=== PATIENT | female | born 1945 | race Caucasian/White ===

== ENCOUNTER 2017-05-24 00:32 | Emergency (ER) | payer MEDICARE, BC ==
[~2017-05-24] VITALS: Ht 160 cm; Wt 63.5 kg
[~2017-05-24 00:32] MED LIST: AMLO5TAB2 PO
--- NOTE | 2017-05-24 01:08 | NUR ---
Patient discharged to home in stable conditon. Written and verbal after care instructions given. Patient verbalizes understanding of instructions. Ambulated from ER with stable gait. All belongings with patient. Patient will be driven home by in private vehicle. Patient educated not to drive or operate heavy machinery due to recent opiate intake.
[2017-05-24 01:10] VITALS: BP 144/79
[2017-05-24] MEDS ORDERED: HYDROCODONE/APAP 10-325 MG TABLET PO ONE (01:15)
[2017-05-24] MEDS ORDERED: HYDROCODONE/APAP 10-325 MG TABLET ONE (01:16)
== END 2017-05-24 01:18 | disposition home or self-care (01) ==
LOC: ER 00:32
DX: M79.622 Pain in left upper arm (principal); I10 Essential (primary) hypertension
CPT/HCPCS: 71010; 93005; A4663

== ENCOUNTER 2017-11-10 21:54 | Inpatient (IN) | payer MEDICARE, BC ==
[~2017-11-10] VITALS: Ht 160 cm; Wt 65.8 kg
[2017-11-10] MEDS ORDERED: ASPIRIN 325 MG TABLET ONE (22:42)
[2017-11-10] MEDS ORDERED: NITROGLYCERIN OINT 1 GM PACKET TP ONE ×3 (22:43→22:45)
[2017-11-10] MEDS ORDERED: ASPIRIN 325 MG TABLET PO ONE (22:45)
[2017-11-10 23:29] LABS: BASOPHILS # (AUTO) 0.1 K/uL (0.0-8.0); BASOPHILS % (AUTO) 0.8 % (0.0-2.0); EOSINOPHILS # (AUTO) 0.3 K/uL (0.0-0.7); EOSINOPHILS % (AUTO) 4.2 % (0.0-7.0); HEMATOCRIT 42.5 % (31.2-41.9); HEMOGLOBIN 14.3 g/dL (10.9-14.3); LYMPHOCYTES # (AUTO) 3.9 K/uL (20.0-40.0); LYMPHOCYTES % (AUTO) 47.7 % (20.5-51.5); MEAN CORPUSCULAR HEMOGLOBIN 31.4 uug (24.7-32.8); MEAN CORPUSCULAR HGB CONC 34 g/dL (32.3-35.6); MEAN CORPUSCULAR VOLUME 93.6 fL (75.5-95.3); MONOCYTES # (AUTO) 0.7 K/uL (2.0-10.0); MONOCYTES % (AUTO) 8.5 % (0.0-11.0); NEUTROPHILS # (AUTO) 3.2 K/uL (1.8-8.9); NEUTROPHILS % (AUTO) 38.8 % (38.5-71.5); PLATELET COUNT (AUTO) 355 K/uL (179-408); RED BLOOD CELL COUNT(AUTO) 4.54 MIL/uL (3.63-4.92); WHITE BLOOD COUNT (AUTO) 8.2 K/uL (3.8-11.8)
[2017-11-10 23:37] LABS: CARBON DIOXIDE 27 mmol/L (21-32); CHLORIDE 105 mmol/L (98-107); CREATININE 0.9 mg/dL (0.6-1.3); GLUCOSE 90 mg/dL (74-106); POTASSIUM 4.1 mmol/L (3.5-5.1); UREA NITROGEN, BLOOD 25 mg/dL (7-18)
--- NOTE | 2017-11-10 23:45 | NUR ---
Patient wished to depart AMA, and patient discussing their options.
--- NOTE | 2017-11-11 00:16 | NUR ---
Call placed to [facility], Dr. Tejada will be paged.
[2017-11-11] MEDS ORDERED: MAGNESIUM HYDROXIDE 30 ML LIQUID UDC PO PRN (00:30)
[2017-11-11] MEDS ORDERED: NITROGLYCERIN 0.4 MG/TAB BOTTLE SL PRN (00:30)
[2017-11-11] MEDS ORDERED: Z GUARD REMEDY PASTE 57 GM TUBE TOP PRN (00:30)
[2017-11-11] MEDS ORDERED: ONDANSETRON 4 MG/2 ML VIAL IV PRN (00:30)
[2017-11-11] MEDS ORDERED: MORPHINE SULFATE 4 MG/1 ML DISP.SYRIN IV PRN (00:30)
[2017-11-11] MEDS ORDERED: ACETAMINOPHEN 325 MG TABLET PO PRN (00:30)
[2017-11-11] MEDS ORDERED: HYDROCODONE/APAP 5-325MG TABLET PO PRN (00:30)
--- NOTE | 2017-11-11 00:31 | NUR ---
Pt. admitted to TELE, under care of Dr. Tejada Belongs List completed
--- NOTE | 2017-11-11 01:20 | NUR ---
PT RECEIVED FROM ED, VIA [facility]. ORIENTED TO ROOM. A/OX4. ABLE TO MAKE NEEDS KNOWN. BP ELEVATED AT 176/78. IN STABLE CONDITION. NO C/O PAIN AT THIS TIME. 62 SINUS RHYTHM ON THE TELE MONITOR. IV INTACT AND PATENT. ON RA, TOLERATING WELL. AFEBRILE. SAFETY MEASURES IMPLEMENTED. CALL LIGHT WITHIN REACH.
[2017-11-11 01:50] VITALS: BP 176/78
[2017-11-11] MEDS: METOPROLOL TARTRATE 50 MG TABLET PO SCH ×2 (02:01→08:35)
[2017-11-11 04:55] VITALS: BP 168/82
--- NOTE | 2017-11-11 05:30 | NUR ---
END OF SHIFT NOTES. PT SLEPT WELL THROUGHOUT SHIFT. IN STABLE CONDITION. SINUS ROSITA 44 TO 57 BPM ON THE TELE MONITOR. BP CONT TO REMAIN ELEVATED, BUT STABLE. NO C/O OF CHEST PAIN THROUGHOUT SHIFT. ALL NEEDS ATTENDED. SAFETY MAINTAINED. CALL LIGHT WITHIN REACH.
--- NOTE | 2017-11-11 07:10 | NUR ---
Client is noted in bed sleeping with the HOB at a semi low position laying on her left side. No pain, SOB, distress or discomfort noted. Bed is at lowest position for safety and call light within reach for assistance. No IV running at this time.
--- NOTE | 2017-11-11 08:20 | NUR ---
Client states she wants to be discharge if everything is normal. She states she has a boutique to get to. I informed her that I would let the know about her wishes
[2017-11-11] MEDS ORDERED: ASPIRIN EC 81 MG TABLET.DR PO SCH (09:00)
[2017-11-11] MEDS ORDERED: AMLODIPINE 5 MG TABLET PO SCH (09:00)
--- NOTE | 2017-11-11 09:32 | NUR ---
As requested earlier, was informed that client is requesting to be discharged if everything is navya. is aware and will talk to the client as soon as possible Addendum: 11/11/17 at 7915 by NAVYA FLOWERS RN Typo: [id number]
[2017-11-11] MEDS ORDERED: HYDROCHLOROTHIAZIDE 25 MG TABLET PO SCH (09:45)
--- NOTE | 2017-11-11 09:52 | NUR ---
Dr inform me of new orders of HYDROCHLOROTHIAZIDE 25 MG TABLET and echocardiogram will be ordered as soon as possible. Pending discharge for later today.
--- NOTE | 2017-11-11 10:10 | NUR ---
Call echo, no answer. Call robotic welding operator who transferred me to solar installation supervisor and informed her about 's request to have client be the first one to be seen today for echocardiogram ordered previously from admitting
[2017-11-11 11:15] VITALS: BP 147/64
--- NOTE | 2017-11-11 11:40 | NUR ---
Echocardiogram done, 60% ejection fraction as endorse by senior telecommunications technician Addendum: 11/11/17 at 1443 by NAVYA FLOWERS RN Ejection fraction at 65%, not 60%
[2017-11-11 11:42] LABS: THYROID STIMULATING HORMONE 1.082 mIU/mL (0.358-3.740)
[2017-11-11] MEDS ORDERED: HYDR25TA4 PO (12:18)
[2017-11-11] MEDS ORDERED: ATOR20TA PO (12:18)
--- NOTE | 2017-11-11 12:49 | NUR ---
MD consult taking place at this time, client has orders for discharge by MD.
--- NOTE | 2017-11-11 13:15 | NUR ---
Client was discharged with discharge orders from MD. All discharge papers signed for and all personal belonging with her. Client is in stable condition to ambulate from the hospital to her personal own boutique a few blocks away.Client walked and was guided to the elevator. Client states no pain, distress, discomfort or SOB. Medications and orders were explained to her and acknowledge them. It was informed to follow up with her primary doctor as soon as possible.
[2017-11-11] MEDS ORDERED: ATORVASTATIN 20 MG TABLET PO SCH (21:00)
[2017-11-11] MEDS ORDERED: SIMVASTATIN 10 MG TABLET PO SCH (21:00)
== END 2017-11-11 13:50 | disposition home or self-care (01) | DRG 206 ==
LOC: ER 21:56 → TELE 11-11 00:50
PROVIDERS: ATTEND Internal Medicine
DX: M94.0 Chondrocostal junction syndrome [Tietze] (principal); I11.0 Hypertensive heart disease with heart failure; I50.32 Chronic diastolic (congestive) heart failure; R00.1 Bradycardia, unspecified; Z91.14 Patient's other noncompliance with medication regimen; M19.90 Unspecified osteoarthritis, unspecified site; H40.9 Unspecified glaucoma; E78.5 Hyperlipidemia, unspecified
CPT/HCPCS: 36415; 70030-TC; 71045; 84443; 85025; 85730; 93005; 93307; A4663